=== PATIENT | male | born 1975 | race Caucasian/White ===

== ENCOUNTER → 2016-07-12 | Outpatient (CLI) | payer OTHER ==
[~2016-07-12] MED LIST: BUPR300T51 PO; CYCL10TA9 PO; FLUO20TA28 PO; HYDR-3816 PO; LISI1TAB10 PO; OXYC-471 PO; TRAM50TA2 PO
[2016-07-12 08:05] LABS: BASOPHILS % (AUTO) 0 % (0-10); EOSINOPHILS # (AUTO) 0.2 10^3/uL (0.0-0.3); EOSINOPHILS % (AUTO) 3 % (0-10); LYMPHOCYTES # (AUTO) 1.4 X 10^3 (1.0-4.0); LYMPHOCYTES % (AUTO) 19 % (12-44); MEAN CORPUSCULAR HEMOGLOBIN 30 PG (25-34); MEAN CORPUSCULAR HGB CONC 35 G/DL (32-36); MEAN CORPUSCULAR VOLUME 85 FL (80-99); MEAN PLATELET VOLUME 8.8 FL (7.4-10.4); MONOCYTES # (AUTO) 0.4 X 10^3 (0.0-1.0); MONOCYTES % (AUTO) 6 % (0-12); NEUTROPHILS # (AUTO) 5.2 X 10^3 (1.8-7.8); NEUTROPHILS % (AUTO) 72 % (42-75); PLATELET COUNT 346 10^3/uL (130-400); RED BLOOD COUNT 5.19 10^6/uL (4.35-5.85); RED CELL DISTRIBUTION WIDTH 13.9 % (10.0-14.5); WHITE BLOOD COUNT 7.3 10^3/uL (4.3-11.0)
[2016-07-13 07:59] LABS: PROLACTIN 11.5 ng/mL (2.1-17.7)
== END ==
LOC: LAB 07:46
PROVIDERS: ATTEND Family Medicine
DX: E29.1 Testicular hypofunction (principal); Z79.899 Other long term (current) drug therapy
CPT/HCPCS: 36415; 84146; 84153; 84403; 85025

== ENCOUNTER 2017-02-21 08:56 | Outpatient (CLI) | payer OTHER ==
[~2017-02-21] VITALS: Ht 167.6 cm; Wt 81.8 kg
[2017-02-21] MEDS ORDERED: BUSP5TAB59 PO (13:59)
[2017-02-21] MEDS ORDERED: ALPR0.5T PO (13:59)
[2017-02-21] MEDS ORDERED: BUPR300T43 PO (13:59)
[2017-02-21] MEDS ORDERED: TRAM50TA2 PO (13:59)
[2017-02-21] MEDS ORDERED: LISI1TAB8 PO (13:59)
== END 2017-02-21 14:02 ==
LOC: PREOP 08:56
PROVIDERS: ATTEND Surgery
DX: Z01.818 Encounter for other preprocedural examination (principal); Z12.11 Encounter for screening for malignant neoplasm of colon; Z80.0 Family history of malignant neoplasm of digestive organs

== ENCOUNTER 2017-02-23 12:28 | Day surgery (SDC) | payer OTHER ==
[~2017-02-23] VITALS: Ht 167.6 cm; Wt 81.8 kg
[~2017-02-23 12:28] MED LIST changes: +ALPR0.5T PO; +BUPR300T43 PO; +BUSP5TAB59 PO; +LISI1TAB8 PO
[2017-02-23] MEDS ORDERED: NS IV 500 ML 500 ML IV PRN (12:34)
[2017-02-23] MEDS ORDERED: LIDOCAINE JELLY 2% (XYLOCAINE) 5 ML TUBE MM PRN (12:45)
--- OUTSIDE RECORDS SUMMARY | 2017-02-23 12:47 | XMS REPORT | Continuity of Care Document ---
Author Author [facility] Organization [facility] Address Unknown Phone Unavailable Allergies Active Description Code Type Severity Reaction Onset Reported/Identified Relationship to Patient Clinical Status Yes No Known Drug Allergies [id number] Drug Allergy Unknown N/A 06/30/2015 Medications There is no data. Problems Date Dx Coded Attending Type Code Diagnosis Diagnosed By 11/22/2009 Ot 558.9 11/22/2009 Ot V12.72 11/22/2009 Ot V16.0 05/21/2014 Ot 253.1 11/17/2014 KASSIE DO, CORRIE F Ot 305.00 11/17/2014 KASSIE DO, CORRIE F Ot 401.9 11/17/2014 KASSIE DO, CORRIE F Ot 573.8 11/17/2014 KASSIE DO, CORRIE F Ot 813.44 11/17/2014 KASSIE DO, CORRIE F Ot 820.8 11/17/2014 KASSIE DO, CORRIE F Ot 922.1 11/17/2014 KASSIE DO, CORRIE F Ot 923.11 11/17/2014 KASSIE DO, CORRIE F Ot 924.20 11/17/2014 KASSIE DO, CORRIE F Ot E000.8 11/17/2014 KASSIE DO, CORRIE F Ot E849.0 11/17/2014 KASSIE DO, CORRIE F Ot E881.0 11/17/2014 KASSIE DO, CORRIE F Ot 305.00 11/17/2014 KASSIE DO, CORRIE F Ot 401.9 11/17/2014 KASSIE DO, CORRIE F Ot 573.8 11/17/2014 KASSIE DO, CORRIE F Ot 813.44 11/17/2014 KASSIE DO, CORRIE F Ot 820.8 11/17/2014 KASSIE DO, CORRIE F Ot 922.1 11/17/2014 KASSIE DO, CORRIE F Ot 923.11 11/17/2014 KASSIE DO, CORRIE F Ot 924.20 11/17/2014 KASSIE DO, CORRIE F Ot E000.8 11/17/2014 KASSIE DO, CORRIE Crocker Ot E849.0 11/17/2014 KASSIE DO, CORRIE Crocker Ot E881.0 03/01/2015 KASSIE DO, CORRIE Crocker Ot S72.009K 03/01/2015 KASSIE DO, CORRIE Crocker Ot X58.XXXS 04/12/2015 Ot 253.1 04/12/2015 KASSIE DO, CORRIE Crocker Ot S72.009K 04/12/2015 KASSIE DO, CORRIE Crocker Ot X58.XXXS 06/09/2015 KASSIE DO, CORRIE Crocker Ot S72.009K 06/09/2015 KASSIE DO, CORRIE Crocker Ot X58.XXXS 06/09/2015 KASSIE DO, CORRIE Crocker Ot S72.002D 06/09/2015 KASSIE DO, CORRIE Crocker Ot X58.XXXD 06/09/2015 KASSIE DO, CORRIE Crocker Ot S72.002K 06/11/2015 KASSIE DO, CORRIE Crocker Ot S72.002K FX UNSP PART OF NECK OF L FEMUR, SUBS FO 06/22/2015 KASSIE DO, CORRIE Crocker Ot S72.002D FX UNSP PART OF NK OF L FEMR, SUBS FOR C 06/22/2015 KASSIE DO, CORRIE Crocker Ot X58.XXXD EXPOSURE TO OTHER SPECIFIED FACTORS, SUB 06/30/2015 MICHELLE COLVIN MD Ot I10 ESSENTIAL (PRIMARY) HYPERTENSION 06/30/2015 MICHELLE COLVIN MD Ot M79.662 PAIN IN LEFT LOWER LEG 06/30/2015 MICHELLE COLVIN MD Ot T84.84XA PAIN DUE TO INTERNAL ORTHOPEDIC PROSTH D 06/30/2015 MICHELLE COLVIN MD Ot Z01.810 ENCOUNTER FOR PREPROCEDURAL CARDIOVASCUL 06/30/2015 MICHELLE COLVIN MD Ot Z01.811 ENCOUNTER FOR PREPROCEDURAL RESPIRATORY 06/30/2015 MICHELLE COLVIN MD Ot Z01.812 ENCOUNTER FOR PREPROCEDURAL LABORATORY E 06/30/2015 MICHELLE COLVIN MD Ot Z11.2 ENCOUNTER FOR SCREENING FOR OTHER BACTER 07/11/2015 MICHELLE COLVIN MD Ot I10 ESSENTIAL (PRIMARY) HYPERTENSION 07/11/2015 MICHELLE COLVIN MD Ot M62.838 OTHER MUSCLE SPASM 07/11/2015 MICHELLE COLVIN MD, Ot S72.002K FX UNSP PART OF NECK OF L FEMUR, SUBS FO 07/11/2015 MARII MERRITT, MICHELLE Bennett Ot Y99.8 OTHER EXTERNAL CAUSE STATUS 09/24/2015 KASSIE THOMAS, CORRIE Crocker Ot S72.009K FX UNSP PART OF NK OF UNSP FEMR, SUBS FO 09/24/2015 CORRIE FERNANDO DO Ot X58.XXXS EXPOSURE TO OTHER SPECIFIED FACTORS, SEQ 09/24/2015 CORRIE FERNANDO DO Ot S72.002D FX UNSP PART OF NK OF L FEMR, SUBS FOR C 09/24/2015 KASSIE THOMAS, CORRIE Crocker Ot X58.XXXD EXPOSURE TO OTHER SPECIFIED FACTORS, SUB 09/24/2015 CORRIE FERNANDO DO Ot S72.002K FX UNSP PART OF NECK OF L FEMUR, SUBS FO 09/27/2015 MEYNDLANDEN THOMAS, JONATHAN S Ot E29.1 TESTICULAR HYPOFUNCTION 09/27/2015 ORENDER DO, JONATHAN S Ot I10 ESSENTIAL (PRIMARY) HYPERTENSION 09/27/2015 ORENDER DO, JONATHAN S Ot R53.83 OTHER FATIGUE 09/27/2015 ORENDER DO, JONATHAN S Ot R63.5 ABNORMAL WEIGHT GAIN 08/16/2016 ORENDER DO, JONATHAN S Ot E29.1 TESTICULAR HYPOFUNCTION 08/16/2016 MEYNDER DO, JONATHAN S Ot Z79.899 OTHER OUTREACH REP (CURRENT) DRUG THERAPY Procedures Code Description Performed By Performed On [id number] 07/09/2015 [id number] 07/09/2015 Results Test Result Range THYROID STIMULATING HORMONE - 09/24/15 06:09 THYROID STIMULATING HORMONE 1.46 u[iU]/mL 0.35-4.94 Serum or plasma thyroxine (T4) free measurement (mass/volume) - 09/24/15 06:09 Serum or plasma thyroxine (T4) free measurement (mass/volume) 1.10 ng/dL 0.70-1.48 TESTOSTERONE FREE TOTAL MALE - 09/24/15 06:09 Testosterone total 202.0 % 300.0-890.0 Testosterone free [mass or moles/volume] in serum or plasma 57.9 pg/ mL 47.0-244.0 Complete urinalysis with reflex to culture - 09/24/15 06:12 Urine color determination YELLOW NRG Urine clarity determination CLEAR NRG Urine pH measurement by test strip 5 5-9 Specific gravity of urine by test strip 1.020 1.016- 1.022 Urine protein assay by test strip, semi-quantitative NEGATIVE NEGATIVE Urine glucose detection by automated test strip NEGATIVE NEGATIVE Erythrocytes detection in urine sediment by light microscopy NEGATIVE NEGATIVE Urine ketones detection by automated test strip NEGATIVE NEGATIVE Urine nitrite detection by test strip NEGATIVE NEGATIVE Urine total bilirubin detection by test strip NEGATIVE NEGATIVE Urine urobilinogen measurement by automated test strip (mass/volume) NORMAL NORMAL Urine leukocyte esterase detection by dipstick NEGATIVE NEGATIVE Automated urine sediment erythrocyte count by microscopy (number/high power field) NONE NRG Automated urine sediment leukocyte count by microscopy (number/high power field ) RARE NRG Bacteria detection in urine sediment by light microscopy NEGATIVE NRG Crystals detection in urine sediment by light microscopy NONE NRG Casts detection in urine sediment by light microscopy NONE NRG Mucus detection in urine sediment by light microscopy MODERATE NRG Complete urinalysis with reflex to culture NO NRG Complete blood count (CBC) with automated white blood cell (WBC) differential - 07/12/16 07:59 Blood leukocytes automated count (number/volume) 7.3 10*3/uL 4.3-11.0 Blood erythrocytes automated count (number/volume) 5.19 10*6/uL 4.35-5.85 Venous blood hemoglobin measurement (mass/volume) 15.5 g/dL 13.3-17.7 Blood hematocrit (volume fraction) 44 % 40-54 Automated erythrocyte mean corpuscular volume 85 [foz_us] 80-99 Automated erythrocyte mean corpuscular hemoglobin (mass per erythrocyte) 30 pg 25-34 Automated erythrocyte mean corpuscular hemoglobin concentration measurement ( mass/volume) 35 g/dL 32-36 Automated erythrocyte distribution width ratio 13.9 % 10.0-14.5 Automated blood platelet count (count/volume) 346 10*3/uL 130-400 Automated blood platelet mean volume measurement 8.8 [foz_us] 7.4-10.4 Automated blood neutrophils/100 leukocytes 72 % 42-75 Automated blood lymphocytes/100 leukocytes 19 % 12-44 Blood monocytes/100 leukocytes 6 % 0-12 Automated blood eosinophils/100 leukocytes 3 % 0-10 Automated blood basophils/100 leukocytes 0 % 0-10 Blood neutrophils automated count (number/volume) 5.2 10*3 1.8-7.8 Blood lymphocytes automated count (number/volume) 1.4 10*3 1.0-4.0 Blood monocytes automated count (number/volume) 0.4 10*3 0.0-1.0 Automated eosinophil count 0.2 10*3/uL 0.0-0.3 Automated blood basophil count (count/volume) 0.0 10*3/uL 0.0-0.1 Serum or plasma prolactin measurement (mass/volume) - 07/12/16 07:59 Serum or plasma prolactin measurement (mass/volume) 11.5 % 2.1-17.7 Serum or plasma testosterone measurement (mass/volume) - 07/12/16 07:59 Testosterone [mass or moles/volume] in serum or plasma 204 % 241-827 Semen free prostate specific antigen (PSA) measurement (units/volume) - 07:59 Prostate specific ag [mass/volume] in serum or plasma 1.17 % 0.00-4.00 Encounters ACCT No. Visit Date/Time Discharge Status Pt. Type Provider Facility Loc./Unit Complaint [id number] 07/12/2016 07:46:00 07/12/2016 23:59:59 CLS Outpatient JONATHAN DANIELS DO [facility] LAB MALE HYPOGONADISM, TESTOSTERONE THERAPY [id number] 09/24/2015 05:48:00 09/24/2015 23:59:59 CLS Outpatient JONATHAN DANIELS DO [facility] LAB [id number] 07/09/2015 08:16:00 07/11/2015 09:45:00 DIS Inpatient MICHELLE COLVIN MD [facility] 4TH [id number] 06/30/2015 12:54:00 06/30/2015 14:33:00 DIS Outpatient MICHELLE COLVIN MD [facility] PREOP [id number] 06/09/2015 08:26:00 06/09/2015 23:59:59 CLS Outpatient CORRIE FERNANDO DO [facility] RAD [id number] 04/12/2015 12:27:00 04/12/2015 23:59:59 CLS Outpatient CORRIE FERNANDO DO [facility] RAD [id number] 02/11/2015 10:00:00 02/11/2015 23:59:59 CLS Outpatient KASSIE CORRIE THOMAS [facility] RAD [id number] 11/14/2014 21:25:00 11/17/2014 17:55:00 DIS Inpatient KASSIE CORRIE Crocker [facility] SURGICAL [id number] 04/06/2014 13:08:00 04/06/2014 23:59:59 CLS Outpatient JAMAAL BURRELL APRN [facility] QUICK [id number] 04/29/2014 12:04:00 Document Registration [id number] 11/22/2009 08:33:00 Document Registration
[2017-02-23 12:51] VITALS: BP 121/86
[2017-02-23] MEDS ORDERED: NS IV 500 ML 500 ML ONE (12:57)
[2017-02-23] MEDS ORDERED: MIDAZOLAM 2 MG/2 ML (VERSED) VIAL ONE ×5 (12:58→13:21)
[2017-02-23] MEDS ORDERED: LIDOCAINE JELLY 2% (XYLOCAINE) 5 ML TUBE ONE (12:59)
[2017-02-23] MEDS ORDERED: fentaNYL INJECTION 100 MCG/2 ML AMP ONE ×2 (12:59)
[2017-02-23] MEDS: fentaNYL INJECTION 100 MCG/2 ML AMP IVP PRN ×3 (13:08→13:24)
--- NOTE | 2017-02-23 13:08 | Progress Note-Pre Operative ---
Pre-Operative Progress Note H&P Reviewed The H&P was reviewed, patient examined and no changes noted. Date Seen by Provider: Feb 23, 2017 Time Seen by Provider: 12:45 Date H&P Reviewed: Feb 23, 2017 Time H&P Reviewed: 12:45 Pre-Operative Diagnosis: screening, family hx colon ca JENSEN BURGOS MD Feb 23, 2017 1:08 pm
--- NOTE | 2017-02-23 13:08 | Conscious Sedation/ASA ---
Conscious Sedation Pre-Proced Time Reviewed: 12:45 ASA Class: 2 Airway Mallampati Classification: ([place] appropriate class) I. II. III, IV Lungs Heart ASA score ASA 1: a normal healthy patient ASA 2: a patient with a mild systemic disease (mid diabetes, controlled hypertension, obesity ASA 3: a patient with a severe systemic disease that limits activity (angina , COPD, prior Myocardial infarction) ASA 4: a patient with an incapacitating disease that is a constant threat to life (CHF, renal failure) ASA 5: a moribund patient not expected to survive 24 hrs. (ruptured aneurysm) ASA 6: a declared brain patient whose organs are being harvested. For emergent operations, add the letter E after the classification Grade 2 Sedation Plan: Analgesia, Amnesia, Plan communicated to team members, Discussed options with patient/fam, Discussed risks with patient/fam Note The patient is an appropriate candidate to undergo the planned procedure, sedation, and anesthesia. The patient immediately re-assessed prior to indication. JENSEN BURGOS MD Feb 23, 2017 1:08 pm
[2017-02-23] MEDS: MIDAZOLAM 2 MG/2 ML (VERSED) VIAL IVP PRN ×5 (13:10→13:26)
--- NOTE | 2017-02-23 13:10 | Discharge Inst-Surgical ---
D/C Lap Instructions-AUBREY Follow Up 5-8 years Activity as tolerated High Fiber Diet 25g or more per day Avoid Alcohol, Caffeine, Spicy Park[address] and Acid foods. Drink 64 fluid oz or more of fluids per day. Symptoms to Report: Fever over 101 degree F, Nausea/Vomiting If any problems/questions: Contact your physician or go to Emergency Room JENSEN BURGOS MD Feb 23, 2017 1:10 pm
[2017-02-23] MEDS ORDERED: ONDANSETRON 4 MG/2 ML (SDV) Z0FRAN IV PRN (13:15)
[2017-02-23] MEDS ORDERED: HYDROcodone/APAP 5 MG/325 MG (LORTAB) TAB PO PRN (13:15)
[2017-02-23] MEDS ORDERED: morphine INJ 10 MG/ML 1ML (SYR OR VIAL) IV PRN (13:15)
[2017-02-23] MEDS ORDERED: ACETAMINOPHEN 325 MG TABLET/CAPLET (TYLENOL) PO PRN (13:15)
--- NOTE | 2017-02-23 13:43 | Progress Note-Post Operative ---
Post-Operative Progess Note Surgeon (s)/Rn Prior Authorization (s) Surgeon JENSEN BURGOS MD Rn Prior Authorization: none Pre-Operative Diagnosis screening, family hx colon ca Post-Operative Diagnosis chronic stage 1 ext and int hemorrhoids, very mild sigmoid diverticulosis, small HP polyp sigmoid(2mm). Procedure & Operative Findings Date of Procedure 02/23/17 Procedure Performed/Findings Colonoscopy with bx. Anesthesia Type CS Estimated Blood Loss Estimated blood loss (mL): minimal Specimens/Packing Specimens Removed sigmoid polyp JENSEN BURGOS MD Feb 23, 2017 1:43 pm
[2017-02-23 13:55] VITALS: BP 126/82
[2017-02-23 14:00] VITALS: BP 128/84
[2017-02-23 14:18] VITALS: BP 128/84
--- NOTE | 2017-02-23 23:37 | OPERATIVE REPORT ---
DATE OF SERVICE: 02/23/2017 ATTENDING PRIMARY CARE PHYSICIAN: Kylee Mendieta DO. PREOPERATIVE DIAGNOSIS: Screening colonoscopy, family history of colon cancer. POSTOPERATIVE DIAGNOSES: Mild chronic stage I external and internal hemorrhoids, small polyp of the sigmoid colon. PROCEDURE: Colonoscopy with biopsy. SURGEON: Jensen Burgos MD. ANESTHESIA: Conscious sedation. ESTIMATED BLOOD LOSS: Minimal. FINDINGS: Chronic stage I external and internal hemorrhoids. Prostate gland was palpable and appeared normal. There was a small polyp of the sigmoid colon, which was flat and red and appeared to be more of an inflammatory polyp. There was a very mild or early sigmoid diverticulosis. The remainder of the colon was normal. DISPOSITION: The patient tolerated the procedure well. INDICATIONS: The patient is a 41-year-old male in need of a screening colonoscopy. He has had previous colonoscopies done in the past. His last one was done approximately seven years ago where a polyp was identified and found to be benign. He is doing well for the most part and does not report any major issues of diarrhea nor constipation as well as no red blood per rectum nor any dark tarry stools. He does have a family history of colon cancer with father having diagnosed with the disease at age 60. DESCRIPTION OF PROCEDURE: The patient was brought to the endoscopy suite and laid in the left lateral decubitus position. After adequate IV pain and sedating medications and conscious sedation anesthesia, a digital rectal examination was performed. Mild chronic stage I external and internal hemorrhoids were identified and not actively edematous nor inflamed and no bleeding. Normal sphincter tone was felt and there were no palpable masses. Prostate gland was palpable and appeared normal. The endoscope was then intubated to the anus and rectum and gently insufflated. The endoscope was then advanced to the valves of Travis of the rectum with no polyps or any neoplasms identified. We then proceeded through the sigmoid colon where a few very small or early diverticulosis identified. There was a small polyp, which was flat and appeared to be more of an irritated hyperplastic polyp approximately 2 mm in size. This was biopsied and destroyed using forceps and electrocautery with visualization of good hemostasis. The endoscope was then advanced to the remainder of the descending, transverse and ascending colon to the cecum. These segments were normal. The endoscope was then slowly withdrawn while taking a second look and suctioning of residual air with no additional findings. The patient tolerated the procedure well. We will have him continue with medical management with a high fiber diet with at least 30 grams of fiber per day as well as at least 64 fluid ounces of water daily to promote soft stools on a daily basis. If this biopsy confirms a hyperplastic polyp, we will recommend a followup colonoscopy at around age 49. However, if there is any villous adenoma component to this polyp, we will recommend a followup colonoscopy in 3 years. Job ID: [id number] DocumentID: [id number] Dictated Date: 02/23/2017 13:37:23 Pneumatic Riveter Date: 02/23/2017 23:36:59 Dictated By: JENSEN BURGOS MD
== END 2017-02-23 14:10 | disposition home or self-care (01) ==
LOC: ENDO 12:28
PROVIDERS: ATTEND Surgery
DX: Z12.11 Encounter for screening for malignant neoplasm of colon (principal); K63.5 Polyp of colon; K64.0 First degree hemorrhoids; Z80.0 Family history of malignant neoplasm of digestive organs; I10 Essential (primary) hypertension; F41.9 Anxiety disorder, unspecified; M19.91 Primary osteoarthritis, unspecified site; Z79.899 Other long term (current) drug therapy

== ENCOUNTER → 2018-02-25 | Outpatient (CLI) | payer OTHER ==
[~2018-02-25] MED LIST changes: +HYDR-34 PO; -HYDR-3816 PO
[2018-02-25 11:24] LABS: BASOPHILS % (AUTO) 0 % (0-10); EOSINOPHILS # (AUTO) 0.2 10^3/uL (0.0-0.3); EOSINOPHILS % (AUTO) 3 % (0-10); HEMATOCRIT 44 % (40-54); HEMOGLOBIN 15.5 G/DL (13.3-17.7); LYMPHOCYTES # (AUTO) 1.5 X 10^3 (1.0-4.0); LYMPHOCYTES % (AUTO) 18 % (12-44); MEAN CORPUSCULAR HEMOGLOBIN 30 PG (25-34); MEAN CORPUSCULAR HGB CONC 35 G/DL (32-36); MEAN CORPUSCULAR VOLUME 84 FL (80-99); MEAN PLATELET VOLUME 8.4 FL (7.4-10.4); MONOCYTES # (AUTO) 0.6 X 10^3 (0.0-1.0); MONOCYTES % (AUTO) 8 % (0-12); NEUTROPHILS # (AUTO) 5.8 X 10^3 (1.8-7.8); NEUTROPHILS % (AUTO) 71 % (42-75); PLATELET COUNT 368 10^3/uL (130-400); RED BLOOD COUNT 5.25 10^6/uL (4.35-5.85); RED CELL DISTRIBUTION WIDTH 14.3 % (10.0-14.5); WHITE BLOOD COUNT 8.1 10^3/uL (4.3-11.0)
[2018-02-25 11:50] LABS: ALANINE AMINOTRANSFERASE 47 U/L (0-55); ALBUMIN 4.5 GM/DL (3.2-4.5); ALKALINE PHOSPHATASE 98 U/L (40-136); BILIRUBIN,TOTAL 0.4 MG/DL (0.1-1.0); BUN/CREATININE RATIO 11; CALCIUM 9.5 MG/DL (8.5-10.1); CARBON DIOXIDE 24 MMOL/L (21-32); CHLORIDE 101 MMOL/L (98-107); CHOLESTEROL 364 MG/DL (< 200); CREATININE SERUM 1.13 MG/DL (0.60-1.30); GFR ESTIMATED > 60; GLUCOSE 103 MG/DL (70-105); HDL CHOLESTEROL 56 MG/DL (40-60); POTASSIUM 4.3 MMOL/L (3.6-5.0); SODIUM 137 MMOL/L (135-145); TOTAL PROTEIN 7.8 GM/DL (6.4-8.2); TRIGLYCERIDES 374 MG/DL (<150); VLDL CHOLESTEROL 75 MG/DL (5-40)
[2018-02-25 12:13] LABS: FREE T4 (FREE THYROXINE) 0.99 NG/DL (0.70-1.48)
== END ==
LOC: LAB 11:01
PROVIDERS: ATTEND Family Medicine
DX: Z00.00 Encounter for general adult medical examination without abnormal findings (principal); R53.83 Other fatigue; I10 Essential (primary) hypertension; E29.1 Testicular hypofunction
CPT/HCPCS: 36415; 80053; 80061; 84403; 84439; 84443; 85025